=== PATIENT | male | born 1950 | race Caucasian/White ===

== ENCOUNTER 2017-06-14 16:19 | Inpatient (IN) | payer OTHER, BC ==
[~2017-06-14] VITALS: Ht 170.2 cm; Wt 88.9 kg
--- NOTE | ~2017-06-14 | D ---
[facility] [place] [address] DISCHARGE SUMMARY Name: SUSANA NI Room #: 215-P [facility] IN M.R.#: [id number] Admission: 06/14/17 Attend Phys: Juanjo Kumar MD, Discharge: 06/16/17 Date of : 46 Report #: [id number] THIS REPORT FOR: //name// CC: [facility] physician/PCP Juanjo Kumar DATE OF SERVICE: 06/16/2017 PRIMARY CARE PHYSICIAN: None. HOSPITAL COURSE: The patient is a 67-year-old male who was admitted from my office after having an abnormal stress echo with some subtle ST elevation. He has a history of remote RCA stent in 2002 and a known nondominant circumflex that was occluded at that setting. Subsequently, brought in to the [place] and taken to the catheterization lab in the a.m., which revealed a 90% proximal LAD lesion at the diagonal takeoff. I subsequently wired the both vessels for protection of the branch, although there was minimal disease in the diagonal branch and able to then dilate and deploy 2514 Resolute drug-eluting stent. I did post-dilate this with a high pressure balloon up to 2.9 mm in size. There appeared to be no significant encroachment on the large diagonal branch. There was extensive septal collateralization to the PDA. There was a moderate inferior wall infarct which was noted back in 2002 from that infarct event. The circumflex was occluded. So not complete revascularization, but no indication for revascularization of essentially infarcted inferior wall. The ejection fraction was still 40-45%. He is markedly improved today, less short of breath and really voicing no complaints. No other intervention would be indicated in this setting. He will be discharged to home on his home medications including aspirin and Plavix. I will continue that indefinitely at least 6 months, but presumably longer based on his anatomy in that this LAD diagonal system is essentially supplying his entire viable myocardium. Atorvastatin 40, lisinopril 20, Protonix 40 and Toprol 25. No lifting for 48 hours. No lying in tub, Jacuzzi or hardin for a week. No MRI or dental work for 3 months. DISCHARGE DIAGNOSES: 1. Unstable angina, coronary artery disease, successful percutaneous transluminal coronary angioplasty stent, drug-eluting of the proximal LAD with known occlusion of the right coronary and circumflex with prior limited inferior infarct. 2. Mild to moderate ischemic cardiomyopathy of 45% range. Inferolateral infarct, old. 3. Hypertension. 4. Hypercholesterolemia. 5. Reflux. RECOMMENDATIONS AND PLAN: As stated above. Followup is scheduled in [address] [address] DISCHARGE SUMMARY Name: SUSANA NI Room #: 215-P [facility] IN M.R.#: [id number] Admission: 06/14/17 Attend Phys: Juanjo Kumar MD, Discharge: 06/16/17 Date of : 46 Report #: [id number] in my office. No interruption of aspirin and Plavix unless this is cleared through Cardiology. <ELECTRONICALLY SIGNED> By: Juanjo Kumar MD, FACC 06/20/17 0902 0906 0941 Juanjo Kumar MD, FACC /nt
--- NOTE | ~2017-06-14 | H ---
[facility] [place] [address] HISTORY AND PHYSICAL Name: SUSANA NI Room #: 215-P [facility] IN M.R.#: [id number] Admission: 06/14/17 Attend Phys: Juanjo Kumar MD, Discharge: 06/16/17 Date of : 46 Report #: [id number] THIS REPORT FOR: //name// CC: [facility] physician/PCP Juanjo Kumar HISTORY OF PRESENT ILLNESS: The patient is a 67-year-old male who is admitted to the CCU directly from the office here. He underwent a stress echocardiographic exam which showed abnormality with some subtle ST elevation in inferior lead, anterior wall , anterior apical lateral stress induced ischemia. He has had a remote RCA stent in 2002 as his only other catheterization. He had an occluded circumflex artery at that time and mild to moderate LAD disease. This is the first abnormal stress test. Ejection fraction is 45-50% with a fixed inferior lateral defect. He has had some accelerating anginal symptoms for the last 3-4 months. This is the first abnormal test that he has had. He has moderate left-sided carotid disease in the 50% range, not significantly changed. He does not have any rest pain. He denies PND, orthopnea, peripheral edema. He is maintained on Lipitor 40, Toprol 50, Protonix 40, quinapril 40. ALLERGIES: PENICILLIN. PAST MEDICAL HISTORY: Positive for coronary artery disease with the RCA stent and limited infarct, circ occlusion back in 2002, mild ischemic cardiomyopathy, left carotid stenosis of 50%, hypertension, hypercholesterolemia, DJD. SOCIAL HISTORY: He is , never a smoker or tobacco or alcohol user. He does still chew. He does use smokeless tobacco. He has 2 children. 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 FAMILY HISTORY: mom and dad, brothers had heart attacks. No significant family history of premature disease. REVIEW OF SYSTEMS: Essentially negative except for some nocturia. PHYSICAL EXAMINATION: VITAL SIGNS: Blood pressure was 160/90, pulse 70s. HEENT: Eyes reveal xanthelasmas. Pharynx is clear. NECK: Shows preserved upstrokes without JVD. Left-sided bruits. LUNGS: Clear. CARDIOVASCULAR: Regular rate and rhythm, S1, S2, without murmur or gallop. ABDOMEN: Soft. No HSM or abdominal bruit. EXTREMITIES: Reveal trace edema. Pulses intact. NEUROLOGIC: Nonfocal. SKIN: Warm and dry without xanthoma or ulcer. MUSCULOSKELETAL: No gross joint deformity. [facility] [address] [place] [address] HISTORY AND PHYSICAL Name: SUSANA NI Room #: 215-[facility] IN ..#: [id number] Admission: 06/14/17 Attend Phys: Juanjo Kumar MD, Discharge: 06/16/17 Date of : 46 Report #: [id number] ASSESSMENT: 1. Coronary artery disease with accelerating angina and abnormal stress echo. 2. Mild ischemic cardiomyopathy with history of a stroke, obtuse marginal occlusion and an right coronary artery stent 2002. 3. Hypertension. 4. Hypercholesterolemia. 5. History of reflux. 6. Carotid stenosis of 50%. RECOMMENDATIONS AND PLAN: This story is somewhat concerning and also some subtle ST elevation on the stress test today also concerning. He is pain free currently. He will be admitted to the CCU. We will obtain stat labs. Continue with his aspirin, statin therapy. The troponin will be checked and we will proceed to the catheterization lab in the a.m. to delineate the coronary anatomy. Risks, benefits, alternatives were discussed with the patient. His will accompany him as they live out of town and I will have further recommendations after I see how the clinical course proceeds. Thank you for asking me to assist in the care of this patient. There is no primary doctor right now. <ELECTRONICALLY SIGNED> By: Juanjo Kumar MD, FACC 06/20/17 0902 1541 1739 Juanjo Kumar MD, FACC /nt
--- NOTE | ~2017-06-14 | CATHLAB ---
[facility] [employer] [address] INVASIVE PROCEDURE REPORT Name: RAINESUSANA W Room #: 215-P [facility] IN ..#: [id number] Admission: 06/14/17 Attend Phys: Juanjo Kumar, Discharge: 06/16/17 Date of : 46 Date of Service: 06/20/17 1740 Report #: [id number] THIS REPORT FOR: //name// APPROVED REPORT Patient Details Patient Status: In-Patient Room #: The patient is a 67 year-old male Event Personnel Juanjo Kumar Oracle Database Architect, Cheryl Douglas Monitor, Kvng Ahn Penny, Wes RN, Courtney Hurtado Monitor Procedures Performed Art Access - R femoral artery* Left Heart Cath w/or w/o Coronaries 7643870 [facility] w/wo Plasty Single LAD 876962 Hemostasis w/ Mynx 24232 Initial Mod Sed Same Phys/QHP Gr5y 102977 55469 Mod Sed Same Phys/QHP Ea 408452 Aortogram Abdominal Peripheral Angio 655819 Procedure Narrative The patient was brought urgently to the Cardiac Catheterization Laboratory and was prepped and draped in a sterile manner. The Right Groin^ was infiltrated with 1% Lidocaine subcutaneous anesthesia. A PINNACLE 6FR Sheath #[id number] sheath was inserted into the RFA^. Coronary angiography was performed using coronary diagnostic catheters. The right coronary system was accessed and visualized with a JR 4 catheter. The left coronary system was accessed and visualized with a JL 4 catheter. The left ventricle was accessed and visualized with a Pigtail catheter. Left ventriculogram was performed in KWOK projection. An aortogram of the abdominal aorta was performed. Closure device was deployed with a 6 Fr Mynx. The patient tolerated the procedure well and there were no complications associated with the procedure. There was no hematoma. Intraoperative Conscious Sedation Sedation start time: 08:08 Case end Time: 08:38 Fentanyl 25.0 mcg Versed 1.5 mg Fluoro Time: 9.40 minutes Dose: DAP 45421.08 cGycm2 1467 mGy Contrast Type and Amount: Omnipaque 210 ml [place] [address] [employer] [address] [place] [address] INVASIVE PROCEDURE REPORT Name: RAINESUSANA Room #: 215-P [facility]#: [id number] Admission: 06/14/17 Attend Phys: Juanjo Kumar, Discharge: 06/16/17 Date of : 46 Date of Service: 06/20/17 1740 Report #: [id number] Hemodynamics The left ventricular pressure is 161/13 mmHg with a mean of mmHg. The left ventricular end diastolic pressure is 20 mmHg. PCI Technique Lesion Percutaneous coronary intervention was performed on the mid left anterior descending artery segment. A LAUNCHER 6FR EBU 3.5 #[id number] Guide Catheter was used to engage the ostium. A Luge Wire .014 x 182CM #459508 Interventional Guidewire was used to cross the lesion. BALLOON DILATION A Balloon catheter Sprinter OTW 2.5 x 12 #[id number] was inserted and inflated up to 10.00atm for 21seconds. STENT DEPLOYMENT A drug-eluting stent RESOLUTE OTW 2.5 X 14 #[id number] was inserted and inflated up to 16.00atm for 35seconds. POST STENT DEPLOYMENT BALLOON DILATION A Balloon catheter TREK NC OTW 2.75 X 12 #[id number] was inserted and inflated up to 14.00atm for 25seconds. Additional Inflation: 20.00atm for 35seconds. Conclusion #1 successful PTCA stent of the proximal LAD lesion involving the diagonal takeoff of 90% to 0% with placement of a 2 5 x 14 resolute drug-eluting stent postdilated 2.9 mm with a noncompliant balloon was distal flow and brisk flow into the diagonal branch which was jailed persisted #2 circumflex OM is nondominant and is fills collateral filling it is occluded proximally. #3 dominant right also occluded the PDA is briskly filled through multiple septal perforators. This is a long-standing chronic total occlusion post-stent placement in 2002 #4 left main distal tapered narrowing of 30% giving rise to LAD and the occluded circumflex #5 the left ventricle is normal in size there is inferior basilar hypokinetic from the prior inferior infarct with the EF is 45-50% range. #6 abdominal aorta is intact without significant aneurysm Recommendations and plan or continue aggressive risk factor modification. The circumflex is small and nondominant occluded chronically. The dominant right occluded after the stent placement in [facility] [address] [place] [address] INVASIVE PROCEDURE REPORT Name: SUSANA NI Room #: 215-P [facility] IN M.R.#: [id number] Admission: 06/14/17 Attend Phys: Juanjo Kumar, Discharge: 06/16/17 Date of : 46 Date of Service: 06/20/171739 Report #: [id number] 2002 in the interval. Well collateralized. Dual antiplatelet therapy will continue indefinitely with that did resolve on the LAD diagonal system. Dual wire technique was utilized preserved that diagonal it is widely patent although jailed by the LAD stent. Improvement in the collateral flow to the inferior wall and circumflex is noted. Transfer to CCU in stable condition. No lifting for 48 hours no line tub Jacuzzi or Mercedes for a week no MRI or dental work for 3 months <ELECTRONICALLY SIGNED> By: Juanjo Kumar MD, FACC 06/20/171739 39 39 Juanjo Kumar MD, FACC /INF
--- NOTE | ~2017-06-14 | EKG ---
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 : 1950 Requested By: Juanjo Kumar Order Number: [id number] MD: Handy Diamond Measurements Intervals [place] Rate: 59 P: 42 DC: 241 QRS: -12 QRSD: 106 T: -32 QT: 463 QTc: 459 Interpretive Statements Sinus rhythm Prolonged DC interval Inferior infarct, age indeterminate Compared to ECG 06/15/2017 10:30:37 No significant change was found Electronically Signed On 06-16-2017 7:39:02 ARMATURE AND ROTOR WINDER by Handy Diamond [email or web address] <ELECTRONICALLY SIGNED> By: Handy Diamond MD, [facility] 06/16/17 0739 0555 0555 Handy Diamond MD, [facility] /EPI
--- NOTE | ~2017-06-14 | EKG ---
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
[2017-06-14 17:41] LABS: HEMATOCRIT 50.3 % (42.0-52.0); HEMOGLOBIN 17.2 gm/dL (14.0-18.0); MCH 31.8 pg (26.0-34.0); MCHC 34.2 g/dL (28.0-37.0); MCV 92.9 fL (80.0-100.0); RBC 5.41 mil/uL (4.50-6.00); RDW 13.8 % (10.5-14.5); WBC 7.8 thou/uL (4.0-11.0)
[2017-06-14 17:49] LABS: CALCIUM 9.5 mg/dL (8.5-10.1); CREATININE 1.2 mg/dL (0.7-1.3); POTASSIUM 3.8 mmol/L (3.5-5.1)
[2017-06-14 17:57] LABS: TOTAL BILIRUBIN 0.7 mg/dL (<0.1-1.0); TOTAL PROTEIN 8.3 g/dL (6.4-8.2); TROPONIN-I 0.08 ng/mL (<0.06)
[2017-06-14 20:00] VITALS: BP 143/86
[2017-06-15] VITALS (8 sets, daily range): BP systolic 112–140; BP diastolic 66–84
[2017-06-15] MEDS ORDERED: ZESTRIL20 MG PO (02:13)
[2017-06-15] MEDS ORDERED: TOPROL XL25 MG PO (02:14)
[2017-06-15] MEDS ORDERED: LIPITOR80 MG PO (02:14)
[2017-06-15] MEDS ORDERED: ASPIRIN325 PO ×2 (06:45→16:16)
[2017-06-15] MEDS ORDERED: PROTONIX40 M1 PO (07:00)
[2017-06-15] MEDS ORDERED: CLOPIDOGREL75 MG PO (16:16)
[2017-06-16] VITALS: BP 129/66
[2017-06-16 00:46] VITALS: BP 129/66
[2017-06-16 04:00] VITALS: BP 115/64
[2017-06-16 04:16] LABS: MCH 31.4 pg (26.0-34.0); MCHC 33.3 g/dL (28.0-37.0); MCV 94.2 fL (80.0-100.0); RBC 4.57 mil/uL (4.50-6.00); RDW 13.7 % (10.5-14.5); WBC 8.7 thou/uL (4.0-11.0)
[2017-06-16 04:22] LABS: HEMOGLOBIN 14.3 gm/dL (14.0-18.0)
[2017-06-16 04:30] VITALS: BP 115/64
[2017-06-16 04:38] LABS: CALCIUM 8.4 mg/dL (8.5-10.1); CREATININE 1.2 mg/dL (0.7-1.3); POTASSIUM 4.2 mmol/L (3.5-5.1); TROPONIN-I 0.07 ng/mL (<0.06)
[2017-06-16 07:30] VITALS: BP 131/73
[2017-06-16 09:42] VITALS: BP 131/73
== END 2017-06-16 10:02 | disposition home or self-care (01) | DRG 247 ==
LOC: 2N 16:19
PROVIDERS: Internal Medicine Cardiovascular Disease
DX: I25.119 Atherosclerotic heart disease of native coronary artery with unspecified angina pectoris (principal); E78.00 Pure hypercholesterolemia, unspecified; I10 Essential (primary) hypertension; K21.9 Gastro-esophageal reflux disease without esophagitis; I65.29 Occlusion and stenosis of unspecified carotid artery; I25.5 Ischemic cardiomyopathy; Z88.0 Allergy status to penicillin; Z82.49 Family history of ischemic heart disease and other diseases of the circulatory system; Z86.73 Personal history of transient ischemic attack (TIA), and cerebral infarction without residual deficits; Z95.5 Presence of coronary angioplasty implant and graft
CPT/HCPCS: 10081

== ENCOUNTER → 2019-11-26 | Outpatient (CLI) | payer OTHER, BC ==
[~2019-11-26] MED LIST: ASPIRIN325 PO; CLOPIDOGREL75 MG PO; LIPITOR80 MG PO; PROTONIX40 M1 PO; TOPROL XL25 MG PO; ZESTRIL20 MG PO
== END ==
LOC: SJCVC 11:26
PROVIDERS: ATTEND Internal Medicine Cardiovascular Disease
DX: I44.0 Atrioventricular block, first degree (principal); I25.10 Atherosclerotic heart disease of native coronary artery without angina pectoris; E78.00 Pure hypercholesterolemia, unspecified; I10 Essential (primary) hypertension; I65.23 Occlusion and stenosis of bilateral carotid arteries; I25.5 Ischemic cardiomyopathy; F17.200 Nicotine dependence, unspecified, uncomplicated; Z95.5 Presence of coronary angioplasty implant and graft; Z79.899 Other long term (current) drug therapy

== ENCOUNTER → 2020-03-10 | Outpatient (CLI) | payer OTHER, BC | LOC: SJCVCIMAG 06:58 | PROVIDERS: ATTEND Internal Medicine Cardiovascular Disease | DX: I25.10 Atherosclerotic heart disease of native coronary artery without angina pectoris (principal); I49.3 Ventricular premature depolarization; I25.5 Ischemic cardiomyopathy; I10 Essential (primary) hypertension; E78.00 Pure hypercholesterolemia, unspecified; F17.200 Nicotine dependence, unspecified, uncomplicated; I25.2 Old myocardial infarction; Z98.61 Coronary angioplasty status; Z79.899 Other long term (current) drug therapy ==

== ENCOUNTER → 2020-09-24 | Outpatient (CLI) | payer OTHER, BC | LOC: SJCVC 13:15 | PROVIDERS: ATTEND Internal Medicine Cardiovascular Disease | DX: R94.31 Abnormal electrocardiogram [ECG] [EKG] (principal); I11.0 Hypertensive heart disease with heart failure; I25.10 Atherosclerotic heart disease of native coronary artery without angina pectoris; E78.00 Pure hypercholesterolemia, unspecified; I25.5 Ischemic cardiomyopathy; I65.23 Occlusion and stenosis of bilateral carotid arteries; Z79.82 Long term (current) use of aspirin; Z79.899 Other long term (current) drug therapy; Z88.0 Allergy status to penicillin ==

== ENCOUNTER → 2021-03-18 | Outpatient (CLI) | payer OTHER, BC ==
[~2021-03-18] MED LIST changes: +ACCUPRIL40 MG PO; +ASA81BEC PO; +ZETIA10 MG PO
== END ==
LOC: SJCVCIMAG 09:50 → SJCVC 09:50
PROVIDERS: ATTEND Internal Medicine Cardiovascular Disease
DX: I25.9 Chronic ischemic heart disease, unspecified (principal); I42.9 Cardiomyopathy, unspecified; I10 Essential (primary) hypertension; E78.5 Hyperlipidemia, unspecified; I25.10 Atherosclerotic heart disease of native coronary artery without angina pectoris; F17.200 Nicotine dependence, unspecified, uncomplicated; Z88.0 Allergy status to penicillin; Z79.82 Long term (current) use of aspirin; Z79.899 Other long term (current) drug therapy

== ENCOUNTER → 2021-03-24 | Outpatient (CLI) | payer OTHER, BC ==
[~2021-03-24] VITALS: Ht 167.6 cm; Wt 81.2 kg
[2021-03-24 08:34] VITALS: BP 159/65
[2021-03-24 08:49] LABS: HEMATOCRIT 43.8 % (42.0-52.0); HEMOGLOBIN 14.5 gm/dL (14.0-18.0); MCH 31.2 pg (26.0-34.0); MCHC 33.1 g/dL (28.0-37.0); MCV 94.5 fL (80.0-100.0); RBC 4.64 mil/uL (4.50-6.00); RDW 13.9 % (10.5-14.5)
[2021-03-24 09:02] LABS: CALCIUM 8.9 mg/dL (8.5-10.1); CREATININE 1.3 mg/dL (0.7-1.3); POTASSIUM 4.2 mmol/L (3.5-5.1)
--- NOTE | 2021-03-24 11:55 | EKG ---
[address] [address] [facility] [place] [address] ELECTROCARDIOGRAM REPORT Name: SUSANA NI Room #: [facility]#: [id number] Admission: 03/24/21 Attend Phys: Juanjo Kumar MD, Discharge: Date of : 46 Report #: [id number] 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: SBULOW : 1950 Requested By: Juanjo Kumar Order Number: [id number] : Renzo Daly Measurements Intervals [place] Rate: 62 P: 15 NJ: 222 QRS: -27 QRSD: 117 T: 27 QT: 467 QTc: 475 Interpretive Statements Sinus rhythm Prolonged [place] interval Left ventricular hypertrophy Compared to ECG 06/16/2017 05:55:52 Left ventricular hypertrophy now present Myocardial infarct finding no longer present Electronically Signed On 03-24-2021 11:54:58 CDT by Renzo Daly [email or web address] <ELECTRONICALLY SIGNED> By: Renzo Daly MD, [facility] 03/24/21 1154 Renzo Daly MD, FAC /EPI
--- NOTE | 2021-03-24 17:25 | CATHLAB ---
[facility] [address] [address] INVASIVE PROCEDURE REPORT Name: SUSANA NI Room #: CAMILA [place]#: [id number] Admission: 03/24/21 Attend Phys: Juanjo Kumar MD, Discharge: Date of : 46 Report #: [id number] THIS REPORT FOR: cc: FAM - No family physician/PCP [facility] - Clinic physician unknown Juanjo Kumar MD [facility] ~ APPROVED REPORT Study performed: 03/24/2021 11:53:08 Patient Details Patient Status: Out-Patient Room #: The patient is a 70 year-old male Event Personnel Juanjo Kumar Railroad Design Consultant, Courtney Hurtado RTR, SUPERVISOR LOGGING Monitor, Jennifer Tate RN RN, Christine Luna RTR Scrub Procedures Performed Art Access - R femoral artery* Left Heart Cath w/or w/o Coronaries 1192514 [facility] Aortogram Abdominal Peripheral Angio 587690 Renal Bilateral Peripheral Angiography 1206820 CVRENALBIL 15489 Initial Mod Sed Same Phys/QHP Gr5y 641780 53576 Mod Sed Same Phys/QHP Ea 080643 Indication Positive stress test Procedure Narrative The Right Groin^ was infiltrated with 1% Lidocaine subcutaneous anesthesia. A PINNACLE 6FR Sheath #[id number] sheath was inserted into the RFA^. Coronary angiography was performed using coronary diagnostic catheters. The right coronary system was accessed and visualized with a JR4 catheter. The left coronary system was accessed and visualized with a JL4 catheter. The left ventricle was accessed and visualized with a PIGTAIL catheter. Left ventriculogram was performed in 30 degree projection. An aortogram of the abdominal aorta was performed. Closure device was deployed with a 6 Fr MYNXGRIP 6/7F #[id number]. The patient tolerated the procedure well and there were no complications associated with the procedure. There was no hematoma. Intraoperative Conscious Sedation [facility] [place] [address] INVASIVE PROCEDURE REPORT Name: SUSANA NI Room #: [facility] Cierra#: [id number] Admission: 03/24/21 Attend Phys: Juanjo EisenbergEvelyn Stacy, Discharge: Date of : 46 Report #: [id number] Sedation start time: 12:29 Case end Time: 13:07 Fentanyl 100 mcg Versed 1 mg Fluoro Time: 4.15 minutes Dose: DAP 4088.60 cGycm2 404 mGy Contrast Type and Amount: Visipaque 115 ml Hemodynamics The aortic pressure is 140/64 mmHg with a mean of 95 mmHg. The left ventricular pressure is 150/1 mmHg with a mean of mmHg. The left ventricular end diastolic pressure is 9 mmHg. Conclusion #1 Left main mildly disease giving rise to LAD and circumflex. #2 LAD an eccentric 3040% proximal lesion with mild disease and then a mid vessel stent that jails a diagonal but this is otherwise widely patent of 60% mid distal LAD lesion significant collateral filling of an occluded PDA. Via septal perforators #3 circumflex OM is occluded and was presumably nondominant small system there is a small proximal rising oh millimeters or ramus branch that is patent #4 dominant right coronary is occluded after previously placed mid vessel stents. The PDA is filled via the left system. #5 selective injection of left renal artery with mild disease #6 selective injection of right renal artery has a low takeoff with mild ostial disease #6 normal left ventricular size with inferior base hypokinetic EF 45 to 50% range. Recommendations and plan: Continue aggressive risk factor modification no indication for coronary intervention. <ELECTRONICALLY SIGNED> By: Juanjo Kumar MD, FACC 03/24/211723 23 23 Juanjo Kumar MD, FACC /INF
== END | disposition home or self-care (01) ==
LOC: CATH 07:56
PROVIDERS: ATTEND Internal Medicine Cardiovascular Disease
DX: R94.39 Abnormal result of other cardiovascular function study (principal); I25.10 Atherosclerotic heart disease of native coronary artery without angina pectoris; I70.1 Atherosclerosis of renal artery; I10 Essential (primary) hypertension; E78.00 Pure hypercholesterolemia, unspecified; I25.5 Ischemic cardiomyopathy; I73.9 Peripheral vascular disease, unspecified; K21.9 Gastro-esophageal reflux disease without esophagitis; I25.2 Old myocardial infarction; F17.210 Nicotine dependence, cigarettes, uncomplicated; Z98.890 Other specified postprocedural states; Z79.899 Other long term (current) drug therapy